=== PATIENT | male | born 1960 | race Caucasian/White ===

== ENCOUNTER 2025-04-09 09:54 | Emergency (ER) | payer MEDICAID ==
[~2025-04-09] VITALS: Ht 185.4 cm; Wt 113.4 kg
[2025-04-09 10:10] VITALS: BP 177/110
[2025-04-09 11:09] LABS: PLATELET COUNT (AUTO) 215 K/uL (152-348); RED BLOOD CELL COUNT(AUTO) 4.66 MIL/uL (4.06-5.63); RED CELL DISTRIBUTION WIDTH 14.9 % (12.1-16.2); WHITE BLOOD COUNT (AUTO) 8.5 K/uL (3.6-10.2)
[2025-04-09 11:20] LABS: CREATININE 1.9 mg/dL (0.6-1.3); SODIUM SERUM 142 mmol/L (136-145); UREA NITROGEN, BLOOD 21 mg/dL (7-18)
[2025-04-09 11:26] LABS: ASPARTATE AMINOTRANSFERASE 20 U/L (15-37); TOTAL PROTEIN, SERUM 6.6 g/dL (6.4-8.2)
[2025-04-09] MEDS ORDERED: PRED50TA PO (11:35)
[2025-04-09] MEDS ORDERED: methylPREDNISolone ACETATE 40 MG VIAL ONE (11:43)
[2025-04-09] MEDS: methylPREDNISolone ACETATE 40 MG VIAL IM ONE (11:46)
[2025-04-09 11:52] VITALS: BP 177/110; O2SAT 98
[2025-04-09] MEDS ORDERED: ACET-3102 PO (11:52)
== END 2025-04-09 11:53 | disposition home or self-care (01) ==
LOC: ER 09:54
DX: M10.041 Idiopathic gout, right hand (principal); E78.5 Hyperlipidemia, unspecified; R06.02 Shortness of breath; Z79.52 Long term (current) use of systemic steroids; Z79.899 Other long term (current) drug therapy
CPT/HCPCS: 99284; 80076; 80048; 83880; 84550; 85025; 85730; 84484; 36415; 73070; 73120 ×2; 96372; J1010; A4606; A4663